=== PATIENT | male | born 1950 | race Caucasian/White ===

== ENCOUNTER 2017-04-18 12:59 | Observation (INO) | payer MEDICARE, BC ==
[~2017-04-18] VITALS: Ht 185.4 cm; Wt 108.6 kg
[~2017-04-18 12:59] MED LIST: BUPIVACAINE/PF 0.5% ONE
[2017-04-18] MEDS ORDERED: LACTATED RINGERS 1,000 ML IV SCH ×2 (13:15→20:00)
[2017-04-18] MEDS ORDERED: METO25TA35 PO (13:18)
[2017-04-18] MEDS ORDERED: IRBE300T16 PO (13:18)
[2017-04-18] MEDS ORDERED: LEVO175T5 PO (13:18)
[2017-04-18] MEDS ORDERED: AMLO5TAB2 PO (13:18)
[2017-04-18] MEDS ORDERED: TADA5TAB2 PO (13:42)
[2017-04-18] MEDS ORDERED: CEFAZOLIN 1,000 MG ONE (13:56)
[2017-04-18] MEDS ORDERED: ROCURONIUM 10 MG/ML,10ML ONE (13:57)
[2017-04-18] MEDS ORDERED: LIDOCAINE-MPF 2% ,5ML ONE (13:57)
[2017-04-18] MEDS ORDERED: PROPOFOL 10 MG/ML, 20ML ONE (13:57)
[2017-04-18] MEDS ORDERED: FENTANYL PF 250 MCG/5ML ONE (14:06)
[2017-04-18] MEDS ORDERED: DEXAMETHASONE 4 MG/ML, 1ML ONE ×2 (14:07)
[2017-04-18] MEDS ORDERED: ONDANSETRON 2MG/ML, 2ML ONE (14:11)
[2017-04-18] MEDS ORDERED: EPINEPHRINE 1 MG/ML, 1ML INFIL ONE (14:15)
[2017-04-18] MEDS ORDERED: GLYCOPYRROLATE 0.2MG/1ML, 5ML ONE (14:40)
[2017-04-18] MEDS ORDERED: NEOSTIGMINE 1 MG/ML, 10ML ONE (14:40)
[2017-04-18] MEDS ORDERED: OXYcodone 5 MG/5 ML ORAL.SOL UDC ONE ×2 (14:57→15:16)
[2017-04-18] MEDS ORDERED: HYDROmorphone 2 MG/ML, 1ML ONE (14:57)
[2017-04-18] MEDS ORDERED: FENTANYL PF 100 MCG/2ML ONE (14:57)
[2017-04-18] MEDS ORDERED: ONDANSETRON 2MG/ML, 2ML IVPush PRN ×2 (15:00→20:30)
[2017-04-18] MEDS ORDERED: METOPROLOL 1 MG/ML, 5ML IV PRN (15:00)
[2017-04-18] MEDS ORDERED: FENTANYL PF 100 MCG/2ML IV PRN (15:00)
[2017-04-18] MEDS ORDERED: MEPERIDINE/PF 25MG/0.5ML IVPush PRN (15:00)
[2017-04-18] MEDS: HYDROmorphone 1 MG/ML, 1ML IV PRN ×2 (15:04→15:13)
[2017-04-18] MEDS: OXYcodone 5 MG/5 ML ORAL.SOL UDC PO PRN ×2 (15:06→15:17)
[2017-04-18] MEDS ORDERED: SCOPOLAMINE PATCH, 1.5MG PATCH.TD72 TD ONE ×2 (17:21→17:30)
[2017-04-18] MEDS ORDERED: PROMETHAZINE 25 MG SUPP PR PRN (17:30)
[2017-04-18 19:29] LABS: MEAN CORPUSCULAR HEMOGLOBIN 30.6 pg (27.5-34.5); MEAN CORPUSCULAR HGB CONC 33.4 g/dL (33.2-36.2); MEAN CORPUSCULAR VOLUME 91.7 fL (81-97); MEAN PLATELET VOLUME 7.9 fL (7.4-10.4); PLATELET COUNT 199 x10^3/uL (130-400); RED BLOOD COUNT 5.35 x10^6/uL (4.38-5.82); RED CELL DISTRIBUTION WIDTH 13.8 % (9.4-14.8)
[2017-04-18 19:50] VITALS: BP 142/100
[2017-04-18 19:52] LABS: BASOPHILS % (AUTO) 0 % (0-1); EOSINOPHILS % (AUTO) 0 % (1-7); LYMPHOCYTES # (AUTO) 0.34 x10^3/uL (1-3.4); LYMPHOCYTES % (AUTO) 3 % (22-44); MD SCAN; MONOCYTES # (AUTO) 0.07 x10^3/uL (0.2-0.8); MONOCYTES % (AUTO) 1 % (2-9); NEUTROPHILS # (AUTO) 12.44 x10^3/uL (1.8-6.8); NEUTROPHILS % (AUTO) 97 % (42-75)
[2017-04-18] MEDS ORDERED: OXYcodone IR 5MG TABLET PO PRN (20:00)
[2017-04-18 21:16] LABS: BASOPHILS # (AUTO) 0.01 x10^3/uL (0-0.1); BASOPHILS % (AUTO) 0 % (0-1); EOSINOPHILS % (AUTO) 0 % (1-7); LYMPHOCYTES # (AUTO) 0.45 x10^3/uL (1-3.4); LYMPHOCYTES % (AUTO) 4 % (22-44); MD NO; MEAN CORPUSCULAR HEMOGLOBIN 30.8 pg (27.5-34.5); MEAN CORPUSCULAR HGB CONC 34.3 g/dL (33.2-36.2); MEAN CORPUSCULAR VOLUME 89.7 fL (81-97); MEAN PLATELET VOLUME 7.6 fL (7.4-10.4); MONOCYTES # (AUTO) 0.18 x10^3/uL (0.2-0.8); MONOCYTES % (AUTO) 2 % (2-9); NEUTROPHILS # (AUTO) 10.82 x10^3/uL (1.8-6.8); NEUTROPHILS % (AUTO) 94 % (42-75); PLATELET COUNT 192 x10^3/uL (130-400); RED BLOOD COUNT 5.19 x10^6/uL (4.38-5.82); RED CELL DISTRIBUTION WIDTH 13.9 % (9.4-14.8)
[2017-04-18 21:28] LABS: ALANINE AMINOTRANSFERASE 55 U/L (12-78); ALBUMIN 3.9 g/dL (3.4-5.0); ANION GAP 8 mmol/L (5-15); CALCIUM 8.8 mg/dL (8.5-10.1); CHLORIDE 104 mmol/L (98-107); CREATININE 1.03 mg/dL (0.7-1.3)
[2017-04-18 21:31] LABS: ALKALINE PHOSPHATASE 72 U/L (45-117); TOTAL PROTEIN 7.2 g/dL (6.4-8.2)
[2017-04-18] MEDS ORDERED: ACETAMINOPHEN 325 MG TABLET PO PRN (22:00)
[2017-04-18 22:20] LABS: FREE T4 (FREE THYROXINE) 1.73 ng/dL (0.76-1.46); THYROID STIMULATING HORMONE 0.068 mIU/L (0.358-3.740)
[2017-04-18 22:49] VITALS: BP 137/79
[2017-04-19 00:20] VITALS: BP 125/79
[2017-04-19] MEDS ORDERED: LEVOTHYROXINE 150 MCG TABLET PO SCH (06:00)
[2017-04-19 07:25] VITALS: BP 118/71
[2017-04-19] MEDS ORDERED: METOPROLOL TARTRATE 25 MG TABLET PO SCH (09:00)
[2017-04-19] MEDS ORDERED: LEVOTHYROXINE 175 MCG TABLET PO SCH (09:00)
[2017-04-19] MEDS ORDERED: AMLODIPINE 5 MG TABLET PO SCH (09:00)
[2017-04-19] MEDS ORDERED: IRBESARTAN 300 MG TABLET PO SCH (09:00)
[2017-04-19 10:14] VITALS: BP 100/70
[2017-04-19 11:23] LABS: MICROSCOPIC NOT IND
[2017-04-19 11:30] LABS: CULTURE INDICATED? NO
[2017-04-19 13:14] VITALS: BP 113/78
[2017-04-19] MEDS ORDERED: LEVO175T5 PO (13:15)
[2017-04-19] MEDS ORDERED: ONDA4TAB7 PO (14:59)
[2017-04-19] MEDS ORDERED: OXYC5CAP2 PO (14:59)
== END 2017-04-19 15:13 | disposition home or self-care (01) ==
LOC: OUT 12:59 → 4NOR 19:45 → 5SO 22:40 → OUT 23:27 → 5SO 23:29 → DCLOUNGE 04-19 14:49
PROVIDERS: ADMIT Surgery; ATTEND Surgery
DX: K81.1 Chronic cholecystitis (principal); K82.8 Other specified diseases of gallbladder; I10 Essential (primary) hypertension; E78.5 Hyperlipidemia, unspecified; E03.9 Hypothyroidism, unspecified; G47.33 Obstructive sleep apnea (adult) (pediatric); I48.91 Unspecified atrial fibrillation; J98.11 Atelectasis; Z82.49 Family history of ischemic heart disease and other diseases of the circulatory system
CPT/HCPCS: 36415; 47562; 71046; 80053; 81003; 83735; 84439; 84443; 85025; 88304; 93005; G0378; J0171; J0690; J1100; J1170; J2405; J2704; J2710; J3010; J3490